=== PATIENT | female | born 1960 | race African-American/Black ===

== ENCOUNTER 2018-12-24 15:00 | Emergency (ER) | payer MEDICAID ==
[2018-12-24] MEDS: LORAZEPAM 0.5 MG TAB PO (17:56)
== END 2018-12-24 18:57 | disposition home or self-care (01) ==
LOC: FTE 15:00
DX: F41.9 Anxiety disorder, unspecified (principal); I10 Essential (primary) hypertension; F17.210 Nicotine dependence, cigarettes, uncomplicated
CPT/HCPCS: 99283; Z7502